=== PATIENT | male | born 1975 | race Caucasian/White ===

== ENCOUNTER 2023-04-22 14:10 | Outpatient (CLI) | payer OTHER ==
--- NOTE | 2023-04-22 15:23 | Sleep Patient Instructions ---
Sleep Center Visit Summary - Patient Visit Information Reason for Visit: Initial consult for evaluation of sleep disordered breathing and other sleep issues. - Patient Instructions Instructions Attached: Sleep Study, Sleep Clinic Visit, Sleep Study Home Monitor Additional Instructions: You will be completing a sleep study, either an in-lab polysomnography (PSG) or home sleep study (HST). You will follow-up in the sleep care office after the sleep study is completed to hear the results and talk about therapy, if needed. You will be called by our office staff to schedule this appointment, but you may contact us with any questions. - Clinic Information Contact: [facility] [address] [place] [address] [email or web address] T: [phone]
--- NOTE | 2023-04-22 15:27 | SLEEP CARE CONSULTATION ---
Information from patient questionnaire entered by Jyoti Gallagher. I have reviewed and concur with the information entered by Jyoti Gallagher. This document represents the service I personally performed and the decisions made by me, Aniyah Gao ARNP. History of Present Illness Service Date and Time: 04/22/2023 1410 Reason for Visit: New patient Chief Complaint: reports: Insomnia, Snoring, Excessive daytime sleepiness, Fatigue, Frequent awakenings at night Date of Onset: off/on for 8+ years Usual bedtime: 10 PM-12 AM Time it takes to fall asleep: varies Snores at night: Yes Observed to quit breathing while asleep: No Sleeps alone due to snoring: No Number of times waking at night: 2+ Reasons for waking at night: reports: Pain, Bathroom, Other (unknown reason). denies: Choking, Snoring, Gasping for air Toss, Turn, or Twitch while sleeping: Yes Recalls having dreams: Yes (sometimes) Usually gets out of bed at: 6-8 AM Feels refreshed in the morning: Yes (sometimes) Morning headache: No Sleepy or fatigued during the day: Yes Ever fallen asleep while driving: No Takes day naps: No Prior sleep studies: No Additional HPI information: I had the pleasure of seeing RAN BARBOSA today regarding the possibility of him having a sleep disorder. His current complaints are excessive daytime sleepiness, fatigue, frequent night awakenings and insomnia. He states he has times, 3-4 times a month, that he will wake up with his heart pounding. He does feel anxious and will trigger worrying. He is in school and is having a hard time concentrating on his work. He states that he has been told he snores but is worse if he drinks hard alcohol. He mostly does not feel rested in the mornings and is tired during the day. He has hypertension that is being treated. He has diabetes but his A1c is now in a normal range since he lost about 35 pounds. 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 Patient is and lives in . Have you smoked in the past 12 months: Yes (trying to stop chewing 12/2022; quit smoking in 2002) Cigarettes per day (20/pack): 10 Years of smokin Quit date: 2002 Smoking Pack Years: 5.0 Alcohol use: Yes Alcohol amount and frequency: 3-6 beers daily Caffeine use: Yes Caffeine amount and frequency: 3-4 12 oz, M-F Family History Family history of sleep disordered breathing: Yes Family Hx Sleep Apnea: Father: Snoring Allergies and Home Medications Known drug allergies: No Drug allergies reviewed: Yes Home medication list reviewed: Yes Allergy and home medication list: Medications: Micardis/HCTZ Metformin (not taking because A1c is in normal range) Artificial tears Multivitamins Turmeric/black pepper supplement mushroom supplement Vit C Superfood greens powder Review of Systems Weight gain over past 5 years: 20 Weight loss over past 5 years: 35, down now Cardiovascular: reports: high blood pressure, palpitations Gastrointestinal: denies: heartburn Neurological: denies: headaches, head trauma Ear/Nose/Throat: reports: wisdom teeth removed. denies: tonsillectomy Endocrine: reports: sluggishness. denies: thyroid disease Musculoskeletal: reports: joint pain, neck pain, back pain Physical Exam Vital signs obtained and entered by: JACQUELINE Mckeon Blood Pressure: 149/92 (is on nicotine patch for tobacco chew) Cuff size: wrist (left) Heart Rate: 92 O2 Saturation: 98 Height: 5 ft 7 in Weight: 180 lb Body Mass Index: 28.1 BMI Classification: Overweight Neck circumference: 16.75 (inches) Mouth and throat: narrow oropharynx Soft palate: long Hard palate: normal Uvula: normal Uvula visualization: 25% Mallampati Class III Tongue: enlarged in size with teeth ojeda on lateral edges Tonsils: small Neck: normal w/o lymphadenopathy or thyromegaly Heart: irregular rhythm Lungs: clear bilaterally Impression and Plan 1. Suspected Obstructive Sleep Apnea-Hypopnea Syndrome, as suggested by a history of loud and irregular snoring, frequent awakening during the night, unrefreshed sleep, cognitive impairment, and excessive daytime sleepiness. N arrow oropharynx and obesity are common predisposing factors for obstructive sleep apnea-hypopnea syndrome. I recommend proceeding to polysomnography to confirm the diagnosis and to assess severity. If the patient has significant sleep disordered breathing, a manual CPAP titration study will also be performed to find the optimal treatment pressure. I informed the patient of what the sleep studies involve and after some discussion, obtained agreement to proceed. The pathophysiology of obstructive sleep apnea-hypopnea syndrome was discussed with the patient and health risks of cardiovascular and cerebrovascular disease if not treated. Risks of drowsy driving discussed in detail and patient advised to avoid long distance driving and to pullman car repairer at the first sign of drowsiness. Patient agreed to plan. * Schedule polysomnography +- manual CPAP titration study and return in 1-2 weeks after the study to discuss result and initiate therapy. * Avoid long distance driving or driving when feeling sleepy. * Avoid alcohol, sedative and muscle relaxant around bedtime. * Attempt to lose weight. * Review instructions provided by trained office staff on how to prepare for the sleep study. * Return for follow-up after sleep study completed. Counseling Topics: Weight loss health impact Visit Type: In Office Time Spent with Patient (minutes): 25 Provider Statement: I spent 100% of the Face to Face Visit with the patient with greater than 50% spent counseling the patient and coordination of care.
[2023-04-22 15:33] VITALS: BP 149/92
== END 2023-04-22 14:11 | disposition home or self-care (01) ==
LOC: SC 14:10
PROVIDERS: ATTEND Nurse Practitioner Family
DX: R06.83 Snoring (principal); G47.8 Other sleep disorders; G47.10 Hypersomnia, unspecified; E11.9 Type 2 diabetes mellitus without complications; I10 Essential (primary) hypertension; E66.3 Overweight; Z68.28 Body mass index [BMI] 28.0-28.9, adult; F17.220 Nicotine dependence, chewing tobacco, uncomplicated
CPT/HCPCS: 99203; 99212

== ENCOUNTER 2023-06-06 09:56 | Outpatient (CLI) | payer OTHER | END 2023-06-06 09:57 | disposition home or self-care (01) | LOC: SC 09:56 | PROVIDERS: ATTEND Nurse Practitioner Family | DX: G47.33 Obstructive sleep apnea (adult) (pediatric) (principal); R09.02 Hypoxemia | CPT/HCPCS: 95806 ==

== ENCOUNTER 2023-08-08 20:52 | Emergency (ER) | payer OTHER ==
[2023-08-08 21:48] LABS: VBG BASE EXCESS -0.7 mmol/L (-2 - +2); VBG HCO3 20.9 mmol/L (23-28); VBG OXYGEN SATURATION 98.3 % (60-80); VBG PCO2 24.9 mmHg (41-51); VBG PH 7.541 (7.31-7.41); VBG PO2 107.8 mmHg (25-47); VBG TOTAL CO2 21.6 mmol/L (24-29)
[2023-08-08 21:49] LABS: HCT - HEMATOCRIT 27.1 % (42.0-52.0); HGB - HEMOGLOBIN 9.4 g/dL (14.0-18.0); LYMPHOCYTES % (AUTO) 35.3 %; MEAN CORPUSCULAR HEMOGLOBIN 36.7 pg (27.0-31.0); MEAN CORPUSCULAR HGB CONC 34.7 g/dL (32.0-36.0); MEAN CORPUSCULAR VOLUME 105.9 fL (80.0-94.0); MEAN PLATELET VOLUME 11.6 fL (7.4-11.4); MONOCYTES % (AUTO) 5.9 %; NEUTROPHILS % (AUTO) 54.9 %; RED BLOOD COUNT 2.56 10^6/uL (4.70-6.10); RED CELL DISTRIBUTION WIDTH 14.6 % (12.0-15.0)
[2023-08-08] MEDS ORDERED: SODIUM CHLORIDE 0.9% 1,000 ML IV STA (21:50)
[2023-08-08] MEDS ORDERED: ACETAMINOPHEN 1,000 MG/100 ML 1,000 MG/100 ML BAG IV ONE (21:50)
[2023-08-08 21:56] LABS: WHITE BLOOD COUNT 0.5 x10^3/uL (4.8-10.8)
[2023-08-08 21:58] LABS: PLT - PLATELET COUNT 27 10^3/uL (130-450)
[2023-08-08 21:59] LABS: ABNORMAL LYMPHS % (MANUAL) 0 %
[2023-08-08] MEDS ORDERED: CEFEPIME 2 GM in SODIUM CHLORIDE 0.9% MINIBAG 100 ML IV STA (21:59)
[2023-08-08 22:01] LABS: ALBUMIN 3.7 g/dL (3.2-5.5); ALBUMIN/GLOBULIN RATIO 1.7 (1.0-2.2); BILIRUBIN,TOTAL 2.2 mg/dL (0.2-1.0); CALCIUM 8.1 mg/dL (8.5-10.3); CREATININE 0.6 mg/dL (0.6-1.3); MAGNESIUM 1.4 mg/dL (1.7-2.3); POTASSIUM 3.6 mmol/L (3.5-4.5); TOTAL PROTEIN 5.9 g/dL (6.4-8.9)
[2023-08-08] MEDS ORDERED: MAGNESIUM SULFATE 2 GRAM 2 GM/50 ML BAG IV ONE (22:14)
[2023-08-08 22:15] LABS: INR 1.9 (0.8-1.2); PT - PROTHROMBIN TIME 20.1 secs (9.9-12.6)
[2023-08-08] MEDS ORDERED: fentaNYL 100 MCG/2 ML VIAL IVP STA (22:15)
[2023-08-08 22:34] LABS: BAND NEUTROPHILS % (MANUAL) 8 %; LYMPHOCYTES % (MANUAL) 26 %
[2023-08-08 22:35] LABS: DIFFERENTIAL COMMENT MANUAL DIFFERENTIAL; LYMPHOCYTES # (MANUAL) 0.2 10^3/uL (1.5-3.5); NEUTROPHILS # (MANUAL) 0.3 10^3/uL (1.5-6.6); PLATELET ESTIMATE, MANUAL DECREASED (<130,000) (NORMAL); PLATELET MORPHOLOGY NORMAL APPEARANCE (NORMAL); RBC MORPHOLOGY (MULTIPLE) NORMAL APPEARANCE (NORMAL); REACTIVE LYMPHS % (MANUAL) 18 %
[2023-08-08 22:41] LABS: B. PARAPERTUSSIS- RESP PCR PAN NOT DETECTED; B. PERTUSSIS- RESP PCR PANEL NOT DETECTED; C. PNEUMONIAE- RESP PCR PANEL NOT DETECTED; CORONAVIRUS 229E-RESP PCR NOT DETECTED; CORONAVIRUS HKU1-RESP PCR NOT DETECTED; CORONAVIRUS NL63-RESP PCR NOT DETECTED; CORONAVIRUS OC43-RESP PCR NOT DETECTED; HUMAN METAPNEUMOVIRUS NOT DETECTED; INFLUENZA A- RESP PCR PANEL NOT DETECTED; INFLUENZA B - RESP PCR PANEL NOT DETECTED; M. PNEUMONIAE- RESP PCR PANEL NOT DETECTED; PARAINFLUENZA VIRUS 1 NOT DETECTED; PARAINFLUENZA VIRUS 2 NOT DETECTED; PARAINFLUENZA VIRUS 3 NOT DETECTED; PARAINFLUENZA VIRUS 4 NOT DETECTED; RHINOVIRUS/ENTEROVIRUS NOT DETECTED; RSV- RESP PCR PANEL NOT DETECTED; SARS-CoV-2 -RESP PCR PANEL NOT DETECTED
[2023-08-08 22:46] LABS: BILIRUBIN,URINE NEGATIVE (NEGATIVE); GLUCOSE, URINE (UA) NEGATIVE (NEGATIVE); KETONES,URINE (UA) 15 mg/dL (NEGATIVE); LEUKOCYTE ESTERASE, URINE NEGATIVE (NEGATIVE); NITRITE,URINE NEGATIVE (NEGATIVE); OCCULT BLOOD,URINE NEGATIVE (NEGATIVE); PROTEIN,URINE NEGATIVE (NEGATIVE); UROBILINOGEN,URINE 2 E.U./dL (NORMAL)
[2023-08-08 22:57] LABS: CLARITY,URINE CLEAR (CLEAR)
--- NOTE | 2023-08-09 00:04 | ED Physician Documentation ---
History of Present Illness - Stated complaint Stated Complaint: FEVER - Chief complaint Chief Complaint: Fever - Additonal information Additional information: Patient 47-year-old male with past medical significant for hairy cell leukemia presenting to the emergency department with fever. Endorses for fever and low back pain. Fevers been intermittent for the last day. Was evaluated by oncology earlier today. Referred to the emergency department. Denies any headache, neck stiffness, blurred vision, double vision, chest pain, cough, congestion, shortness of breath, abdominal pain. Reports low back pain near to an associated with the site of her recent bone marrow biopsy. Completed a course of oral chemotherapy agents 1 week ago. Denies saddle paresthesias, loss of bowel or bladder control, lower extremity weakness. Review of Systems Constitutional: reports: Fever, Fatigue Eyes: denies: Loss of vision Ears: denies: Loss of hearing Nose: denies: Rhinorrhea / runny nose Throat: denies: Dental pain / toothache, Oral lesions / sores, Sore throat Cardiac: denies: Chest pain / pressure, Palpitations, Pedal edema Respiratory: denies: Dyspnea, Cough, Hemoptysis GI: denies: Abdominal Pain, Nausea, Vomiting, Constipation, Diarrhea : denies: Dysuria, Frequency Skin: denies: Rash Musculoskeletal: reports: Back pain. denies: Neck pain Neurologic: denies: Generalized weakness Psychiatric: denies: Depressed PD PAST MEDICAL HISTORY - Past Medical History Past Medical History: Yes Neuro: None Other Past Medical History: leukemia just finished chemo - Allergies Allergies/Adverse Reactions: Allergies Allergy/AdvReac Type Severity Reaction Status Date / Time No Known Drug Allergies Allergy Verified 08/08/23 20:57 - Social History Does the pt smoke?: No Smoking Status: Never smoker - Immunizations Immunizations are current?: Yes PD ED PE NORMAL - Vitals Vital signs reviewed: Yes (Febrile and tachycardic) - General General: Alert and oriented X 3, No acute distress, Well developed/nourished, Other - HEENT HEENT: Atraumatic, PERRL, EOMI, Ears normal, Moist mucous membranes, Pharynx benign, Dentition benign - Neck Neck: Supple, no meningeal sign, No bony TTP, No adenopathy, Thyroid normal, No JVD, No bruit, C-Spine cleared by NEXUS criteria - Cardiac Cardiac: RRR, No murmur, No gallop, Strong equal pulses - Respiratory Respiratory: No respiratory distress, Clear bilaterally - Abdomen Abdomen: Normal bowel sounds, Non tender - Male Male : Deferred - Rectal Rectal: Deferred - Back Back: No CVA TTP - Derm Derm: Normal color - Extremities Extremities: No deformity - Neuro Neuro: Alert and oriented X 3, 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, No motor deficit, Normal speech Results - Vitals Vitals: Vital Signs - 24 hr 08/08/23 08/08/23 08/08/23 20:58 21:00 23:00 Temperature 99.6 C H 38.3 C H Heart Rate 69 122 H 140 H Respiratory 16 20 16 Rate Blood Pressure 166/70 H 159/84 H 135/70 H O2 Saturation 99 98 95 08/09/23 08/09/23 08/09/23 00:26 01:23 02:00 Temperature 37.4 C Heart Rate 105 H 95 96 Respiratory 18 18 18 Rate Blood Pressure 125/96 H 125/68 120/68 O2 Saturation 97 95 95 08/09/23 08/09/23 08/09/23 02:55 03:44 04:33 Temperature 37.5 C Heart Rate 101 H 105 H 105 H Respiratory 18 20 18 Rate Blood Pressure 120/68 141/83 H O2 Saturation 98 95 94 08/09/23 06:00 Temperature Heart Rate 104 H Respiratory 16 Rate Blood Pressure 127/62 O2 Saturation 97 Oxygen O2 Source Room air - EKG (time done) 2153 EKG releavant findings:: EKG personally interpreted by author of this note. Relevant findings are: Sinus rhythm with rate 126 bpm. Normal axis. Normal IL, QRS intervals. QTc prolonged at [address] segment elevations. Nonspecific ST-T wave abnormalities. Frequent premature ventricular complexes. - Labs Labs: Laboratory Tests 08/08/23 08/08/23 08/08/23 21:39 21:39 21:39 WBC 0.5 L* RBC 2.56 L Hgb 9.4 L Hct 27.1 L MCV 105.9 H MCH 36.7 H MCHC 34.7 RDW 14.6 Plt Count 27 L* MPV 11.6 H Neut # (Auto) Not Reportable Lymph # (Auto) Not Reportable Maury # (Auto) Not Reportable Eos # (Auto) Not Reportable Baso # (Auto) Not Reportable Absolute Nucleated RBC Not Reportable Total Counted 50 Band Neuts % (Manual) 8 Reactive Lymphs % (Man) 18 Abnorm Lymph % (Manual) 0 Nucleated RBC % Not Reportable Neutrophils # (Manual) 0.3 L* Lymphocytes # (Manual) 0.2 L Monocytes # (Manual) 0.0 Eosinophils # (Manual) 0.0 Basophils # (Manual) 0.0 Differential Comment MANUAL DIFFERENTIAL Platelet Estimate DECREASED (<130,000) Platelet Morphology NORMAL APPEARANCE RBC Morph Micro Appear NORMAL APPEARANCE PT 20.1 H INR 1.9 H VBG pH VBG pCO2 VBG pO2 VBG HCO3 VBG Total CO2 VBG O2 Saturation VBG Base Excess Sodium 125 L Potassium 3.6 Chloride 95 L Carbon Dioxide 20 L Anion Gap 10.0 BUN 14 Creatinine 0.6 Estimated GFR (MDRD) 144 Glucose 172 H Lactic Acid Calcium 8.1 L Magnesium 1.4 L Total Bilirubin 2.2 H AST 25 ALT 33 Alkaline Phosphatase 27 L Total Protein 5.9 L Albumin 3.7 Globulin 2.2 Albumin/Globulin Ratio 1.7 Lipase 36 Urine Color Urine Clarity Urine pH Ur Specific [place] Urine Protein Urine Glucose (UA) Urine Ketones Urine Occult Blood Urine Nitrite Urine Bilirubin Urine Urobilinogen Ur Leukocyte Esterase Ur Microscopic Review Urine Culture Comments Nasal Adenovirus (PCR) Nasal B. parapertussis DNA (PCR) Nasal Coronavir 229E PCR Nasal Coronavir HKU1 PCR Nasal Coronavir NL63 PCR Nasal Coronavir OC43 PCR Nasal Enterovir/Rhinovir PCR Nasal Influenza B PCR Nasal Influenza A PCR Nasal Parainfluen 1 PCR Nasal Parainfluen 2 PCR Nasal Parainfluen 3 PCR Nasal Parainfluen 4 PCR Nasal RSV (PCR) Nasal B.pertussis DNA PCR Nasal C.pneumoniae (PCR) Amaury Human Metapneumo PCR Nasal M.pneumoniae (PCR) Nasal SARS-CoV-2 (PCR) 08/08/23 08/08/23 08/08/23 21:39 21:39 21:45 WBC RBC Hgb Hct MCV MCH MCHC RDW Plt Count MPV Neut # (Auto) Lymph # (Auto) Maury # (Auto) Eos # (Auto) Baso # (Auto) Absolute Nucleated RBC Total Counted Band Neuts % (Manual) Reactive Lymphs % (Man) Abnorm Lymph % (Manual) Nucleated RBC % Neutrophils # (Manual) Lymphocytes # (Manual) Monocytes # (Manual) Eosinophils # (Manual) Basophils # (Manual) Differential Comment Platelet Estimate Platelet Morphology RBC Morph Micro Appear PT INR VBG pH 7.541 H VBG pCO2 24.9 L VBG pO2 107.8 H VBG HCO3 20.9 L VBG Total CO2 21.6 L VBG O2 Saturation 98.3 H VBG Base Excess -0.7 Sodium Potassium Chloride Carbon Dioxide Anion Gap BUN Creatinine Estimated GFR (MDRD) Glucose Lactic Acid 2.6 H Calcium Magnesium Total Bilirubin AST ALT Alkaline Phosphatase Total Protein Albumin Globulin Albumin/Globulin Ratio Lipase Urine Color Urine Clarity Urine pH Ur Specific [place] Urine Protein Urine Glucose (UA) Urine Ketones Urine Occult Blood Urine Nitrite Urine Bilirubin Urine Urobilinogen Ur Leukocyte Esterase Ur Microscopic Review Urine Culture Comments Nasal Adenovirus (PCR) NOT DETECTED Nasal B. parapertussis DNA (PCR) NOT DETECTED Nasal Coronavir 229E PCR NOT DETECTED Nasal Coronavir HKU1 PCR NOT DETECTED Nasal Coronavir NL63 PCR NOT DETECTED Nasal Coronavir OC43 PCR NOT DETECTED Nasal Enterovir/Rhinovir PCR NOT DETECTED Nasal Influenza B PCR NOT DETECTED Nasal Influenza A PCR NOT DETECTED Nasal Parainfluen 1 PCR NOT DETECTED Nasal Parainfluen 2 PCR NOT DETECTED Nasal Parainfluen 3 PCR NOT DETECTED Nasal Parainfluen 4 PCR NOT DETECTED Nasal RSV (PCR) NOT DETECTED Nasal B.pertussis DNA PCR NOT DETECTED Nasal C.pneumoniae (PCR) NOT DETECTED Amaury Human Metapneumo PCR NOT DETECTED Nasal M.pneumoniae (PCR) NOT DETECTED Nasal SARS-CoV-2 (PCR) NOT DETECTED 08/08/23 08/09/23 22:40 01:29 WBC RBC Hgb Hct MCV MCH MCHC RDW Plt Count MPV Neut # (Auto) Lymph # (Auto) Maury # (Auto) Eos # (Auto) Baso # (Auto) Absolute Nucleated RBC Total Counted Band Neuts % (Manual) Reactive Lymphs % (Man) Abnorm Lymph % (Manual) Nucleated RBC % Neutrophils # (Manual) Lymphocytes # (Manual) Monocytes # (Manual) Eosinophils # (Manual) Basophils # (Manual) Differential Comment Platelet Estimate Platelet Morphology RBC Morph Micro Appear PT INR VBG pH VBG pCO2 VBG pO2 VBG HCO3 VBG Total CO2 VBG O2 Saturation VBG Base Excess Sodium Potassium Chloride Carbon Dioxide Anion Gap BUN Creatinine Estimated GFR (MDRD) Glucose Lactic Acid 0.7 Calcium Magnesium Total Bilirubin AST ALT Alkaline Phosphatase Total Protein Albumin Globulin Albumin/Globulin Ratio Lipase Urine Color YELLOW Urine Clarity CLEAR Urine pH 7.0 Ur Specific [place] 1.015 Urine Protein NEGATIVE Urine Glucose (UA) NEGATIVE Urine Ketones 15 H Urine Occult Blood NEGATIVE Urine Nitrite NEGATIVE Urine Bilirubin NEGATIVE Urine Urobilinogen 2 H Ur Leukocyte Esterase NEGATIVE Ur Microscopic Review NOT INDICATED Urine Culture Comments NOT INDICATED Nasal Adenovirus (PCR) Nasal B. parapertussis DNA (PCR) Nasal Coronavir 229E PCR Nasal Coronavir HKU1 PCR Nasal Coronavir NL63 PCR Nasal Coronavir OC43 PCR Nasal Enterovir/Rhinovir PCR Nasal Influenza B PCR Nasal Influenza A PCR Nasal Parainfluen 1 PCR Nasal Parainfluen 2 PCR Nasal Parainfluen 3 PCR Nasal Parainfluen 4 PCR Nasal RSV (PCR) Nasal B.pertussis DNA PCR Nasal C.pneumoniae (PCR) Amaury Human Metapneumo PCR Nasal M.pneumoniae (PCR) Nasal SARS-CoV-2 (PCR) PD Medical Decision Making - ED course Complexity details: reviewed results, re-evaluated patient, considered differential, d/w patient ED course: Patient is a 47-year-old male presenting to the emergency department with complaint of fever. This is in the setting of recent chemotherapy treatment for hairy cell leukemia. Febrile, tachycardic on arrival to the emergency department. Given 1 L IV hydration, Ofirmev, blood cultures obtained. He endorsed for some low back pain associated with the site of recent bone marrow biopsy but otherwise denied other acute symptomsInitial evaluation there was no clear indication of source for his fever. I did obtain comprehensive labs which very significantly demonstrated a pancytopenia with an absolute neutrophil count of less than 50. 2 2 g cefepime ordered. Given his immunocompromise state I obtain comprehensive imaging including CT of the chest, CT of the abdomen and pelvis. These demonstrated hepatosplenomegaly as well as a nonspecific lesion to the liver but no other acute abnormality. At this time there are no beds available at our facility. The patient and patient's family specifically requested transfer to [facility] as they wish to be treated in a facility associated with her oncologist. Spoke with Dr. Avila, oncology at [facility] who is amenable to the transfer. Departure - Departure Disposition: [facility] Psych Hosp/Unit DC/Xfer Clinical Impression: Neutropenic fever, Hairy cell leukemia, Pancytopenia, Hyponatremia Forms: PCP List
--- NOTE | 2023-08-09 01:41 | CT Report ---
PROCEDURE: ANGIO CHEST W/WO INDICATIONS: Rule out PE CONTRAST: Omni 300 100ml TECHNIQUE: After the administration of intravenous contrast, 2 mm axial images were acquired from the pulmonary apices to the posterior costophrenic angles during the arterial phase. In addition, 1 mm lung kernel and 5 mm soft tissue kernel reconstructions were performed. 3-dimensional coronal oblique maximum int ensity projection (MIP) reformats, 8 mm axial MIP, and 5 mm coronal and sagittal MPR reformats were t hen performed through the thorax. For radiation dose reduction, the following was used: automated exp osure control, adjustment of mA and/or kV according to patient size. COMPARISON: None FINDINGS: Image quality: There is suboptimal bolus timing and incomplete opacification of pulmonary arteries.. Large vessels: There is no large central saddle embolus. Evaluation of peripheral pulmonary arteries is limited due to heterogeneous pulmonary artery opacification. The thoracic aorta is normal caliber and there is normal branching of the great vessels. Lungs and pleura: There is an air-containing tubular, slightly thick-walled air collection extending from the right hilum into the right upper lobe centrally with adjacent septal thickening and tetherin g of bronchovascular structures. The lungs are otherwise clear. There is a thin-walled cyst in the me dial right upper lobe and minor septal thickening. No pleural effusions. No pneumothorax. No suspici ous pulmonary nodules which require follow up. Mediastinum: Heart size is normal. No pericardial effusion. . No mediastinal adenopathy by size crite charisse. No anterior or posterior mediastinal mass. Normal esophagus without hiatal hernia Chest wall and lower neck: Thyroid is unremarkable. No axillary or supraclavicular adenopathy by size . Bones: No aggressive osseous abnormality. Upper Abdomen: Dictated separately. IMPRESSION: 1. No large saddle embolus in the main pulmonary arteries. The exam is nondiagnostic for lobar or per ipheral pulmonary emboli. 2. Air-containing tubular structure in the right upper lobe may be a variant bronchus. No associated fluid collections or surrounding inflammation. Correlate with any prior imaging or history. There Reviewed by: Yuki Campos MD on 08/09/2023 1:40 AM PDT Approved by: Yuki Campos MD on 08/09/2023 1:40 AM PDT Station ID: [id number]
[2023-08-09] MEDS ORDERED: iohexoL-300 100 ML VIAL IVP ONE (01:42)
--- NOTE | 2023-08-09 02:22 | CT Report ---
PROCEDURE: ABDOMEN/PELVIS W INDICATIONS: lower back pain, fever, neutropenia CONTRAST: Omni 300 100ml TECHNIQUE: After the administration of intravenous contrast, 5 mm thick sections acquired from the diaphragms to the symphysis. 5 mm thick coronal and sagittal reformats were acquired. For radiation dose reducti on, the following was used: automated exposure control, adjustment of mA and/or kV according to shahida ent size. COMPARISON: None FINDINGS: Image quality: Excellent. Lung bases and heart: Dictated separately Liver: Diffusely enlarged in the AP diameter. Indistinct hypodense 1.2 cm focus in the central right hepatic lobe. No other focal liver lesions. Gallbladder and biliary tree: The decompressed gallbladder. Nondilated biliary tree. Spleen: Marked splenomegaly spleen measures approximately 19.8 x 22.8 cm and is heterogeneous in atte nuation. The splenic vein is diffusely enlarged. Pancreas: Unremarkable. Adrenals: No nodules. Kidneys and ureters: Symmetric enhancement. No hydronephrosis or nephrolithiasis. No solid mass or cy st requiring follow-up. The left kidney is medially compressed. Bowel and peritoneum: Stomach and small bowel are normal. Loops of colon appear within normal limits. Normal appendix present. Lymph nodes: There is bulky adenopathy in the ryley hepatis, periceliac retroperitoneum, and mildly i n the aortocaval retroperitoneum at the level of the renal veins. Vessels: Normal caliber aorta and IVC. PELVIS Reproductive organs: Normal size prostate gland. Bladder: No abnormal wall thickening, accounting for underdistension. Pelvic lymph nodes: No pelvic adenopathy by size criteria. Bones: No aggressive osseous abnormality. Other: No significant ventral or inguinal hernia. IMPRESSION: 1. Marked splenomegaly and upper abdominal adenopathy suspicious for hematologic malignancy/lymphopro liferative disease. 2. Hepatic enlargement with an indeterminant 1.2 cm right lobe liver lesion, nonspecific. Reviewed by: Yuki Campos MD on 08/09/2023 1:45 AM PDT Approved by: Yuki Campos MD on 08/09/2023 1:45 AM PDT Station ID: [id number]
[2023-08-09] MEDS ORDERED: CEFEPIME 2 GM in SODIUM CHLORIDE 0.9% MINIBAG 100 ML IV STA (07:00)
[2023-08-09] MEDS ORDERED: oxyCODONE 5 MG TABLET PO PRN (07:43)
[2023-08-09] MEDS ORDERED: fentaNYL 100 MCG/2 ML VIAL IVP STA (07:43)
[2023-08-09] MEDS ORDERED: ACETAMINOPHEN 325 MG TABLET PO SCH (09:00)
--- NOTE | 2023-08-09 11:56 | ED Physician Documentation ---
ED Addendum - Addendum Addendum: 08/09/23 11:[address] Pearce who is a hospitalist for [facility]. They do have a bed available. He is excepting of the patient. I reviewed the findings and course and labs with the provider. The transfer center will call back with the bed assignment and will arrange transfer potation. The patient is stable at this point. He had received repeat doses cefepime antibiotic. We will repeat the chemistry panel this morning to see if his sodium is improved. Otherwise anticipate transfer by ground EMS. Disposition: Transfer to acute care facility in stable condition Number Diagnoses: 1. Neutropenic fever 2. History of hairy cell leukemia 3. Low platelet count 4. Hyponatremia
[2023-08-09 12:18] LABS: CREATININE 0.6 mg/dL (0.6-1.3); POTASSIUM 3.9 mmol/L (3.5-4.5)
[2023-08-09 12:31] VITALS: BP 151/67; O2SAT 97
== END 2023-08-09 13:15 ==
LOC: ED 20:52
DX: D70.9 Neutropenia, unspecified (principal); R50.81 Fever presenting with conditions classified elsewhere; C91.40 Hairy cell leukemia not having achieved remission; E87.1 Hypo-osmolality and hyponatremia
CPT/HCPCS: 36415; 71275; 74177; 80048; 80053; 81003; 82803; 83605; 83690; 83735; 85025; 85610; 87040; 87633; 93005; 96365; 96366; 96367; 96368; 96375; 96376; 99285; A9270; J0131; Q9967; 81001; 87086